=== PATIENT | male | born 1980 | race Caucasian/White ===

== ENCOUNTER 2017-01-17 20:15 | Emergency (ER) | payer BC ==
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
[2017-01-17] MEDS ORDERED: Lidocaine/Epineph/Tetraca SOL* (LET solution) 4 ML BTL TOPICAL ONE (20:52)
[2017-01-17] MEDS ORDERED: Tetan/Diph/Pertus SYR(Tdap)* 0.5 ML SYR(BOOSTRIX) use SYR IM ONE (21:04)
[2017-01-17 21:46] VITALS: BP 144/93
== END 2017-01-17 22:12 | disposition home or self-care (01) ==
LOC: UCEAST 20:15
DX: S01.112A Laceration without foreign body of left eyelid and periocular area, initial encounter (principal); W22.8XXA Striking against or struck by other objects, initial encounter; Y92.9 Unspecified place or not applicable; R03.0 Elevated blood-pressure reading, without diagnosis of hypertension
CPT/HCPCS: 12011; 99212; G0463

== ENCOUNTER 2017-01-22 10:19 | Emergency (ER) | payer BC ==
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
== END 2017-01-22 11:47 | disposition home or self-care (01) ==
LOC: UCEAST 10:19
DX: S01.112D Laceration without foreign body of left eyelid and periocular area, subsequent encounter (principal); W45.8XXD Other foreign body or object entering through skin, subsequent encounter; Y92.9 Unspecified place or not applicable; Z87.891 Personal history of nicotine dependence

== ENCOUNTER 2017-05-30 09:46 | Emergency (ER) | payer BC ==
[2017-05-30 12:17] LABS: ABS Basophils 0 10^3/ul (0-0.2); ABS Eosinophils 0 10^3/ul (0-0.6); ABS Lymphocytes 1.9 10^3/ul (1.0-4.8); ABS Monocytes 0.5 10^3/ul (0-0.8); ABS Nucleated RBC 0 10^3/ul; Eosinophil % 0.7 % (0-6); Hematocrit 44 % (42-52); Hemoglobin 14.3 g/dl (14.0-18.0); Lymphocyte % 34.3 % (25-47); Mean Corpuscular HGB Conc 33 g/dl (31-36); Mean Corpuscular Hemoglobin 27 pg (27-31); Mean Corpuscular Volume 82 fL (80-94); Mean Platelet Volume 9 um3 (7.4-10.4); Nucleated Red Blood Cells % 0; Platelet Count 197 10^3/ul (150-450); Red Blood Count 5.32 10^6/ul (4.0-5.4); Red Cell Distribution Width 13 % (10.5-15); White Blood Count 5.5 10^3/ul (3.5-10.8)
[2017-05-30 12:36] LABS: EGFR Non-African American 95.2 (>60)
[2017-05-30 12:42] LABS: INR 0.96 (0.77-1.02)
--- NOTE | 2017-05-30 13:13 | RAD ---
Indication: Chest pain. Single view of the chest including dual energy PA views demonstrates no mediastinal shift. Heart is normal size and configuration. Lung wright are clear. IMPRESSION: No active cardiopulmonary disease is noted.
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
[2017-05-30 15:32] VITALS: BP 131/70
== END 2017-05-30 15:32 | disposition home or self-care (01) ==
LOC: ED 09:46
DX: R07.89 Other chest pain (principal); M79.1 Myalgia; F41.9 Anxiety disorder, unspecified; J45.909 Unspecified asthma, uncomplicated; K21.9 Gastro-esophageal reflux disease without esophagitis; Z91.013 Allergy to seafood; Z87.891 Personal history of nicotine dependence
CPT/HCPCS: 36415; 71045; 80053; 82550; 82553; 83605; 83735; 83880; 84436; 84443; 84484; 85025; 85379; 85610; 85730; 93005; 99282